=== PATIENT | female | born 1970 | race Caucasian/White ===

== ENCOUNTER 2017-01-18 17:48 | Observation (INO) | payer OTHER ==
[2017-01-18] MEDS ORDERED: NITROGLYCERIN 0.4 MG/TAB BTL SL PRN (18:18)
[2017-01-18] MEDS ORDERED: ASPIRIN 81 MG TAB.CHEW PO ONE (18:18)
[2017-01-18] MEDS ORDERED: ASPIRIN 81 MG TAB.CHEW ONE (18:19)
--- NOTE | 2017-01-18 18:27 | ERNOTE ---
Chest Pain/Cardiac HPI Chief Complaint: Chest Pain Time Seen by Provider: 01/18/17 18:12 Source: patient Exam Limitations: no limitations Immunizations: IMMUNIZATION HX Immunizations Up to Date Yes History of Influenza Vaccine Yes Hx Pneumococcal Vaccination No Allergies/Adverse Reactions: Allergies Iodinated Contrast Media - Oral and [Iodinated Contrast Media - IV Dye] Allergy (Severe, Verified 06/06/14 13:29) DIFF BREATHING Home Medications: HOME MEDICATIONS Acetaminophen [Tylenol] 1 - 2 tab PO Q4H PRN 12/15/13 [Last Taken 06/05/14] Aspirin [Aspirin Chewable] 81 mg PO DAILY 12/15/13 [Last Taken 06/05/14] Atorvastatin Calcium [Lipitor] 40 mg PO HS 12/15/13 [Last Taken 06/05/14] Clopidogrel Bisulfate [Plavix] 75 mg PO DAILY 12/15/13 [Last Taken 06/05/14] Nitroglycerin [Nitrostat] 0.4 mg SL Q5M PRN 12/15/13 [Last Taken 06/05/14] buPROPion HCL [Wellbutrin Xl] 150 mg PO DAILY 12/15/13 [Last Taken 06/05/14] Isosorbide Mononitrate [Imdur] 30 mg PO DAILY #30 tab.sr.24h 06/08/14 [Last Taken Unknown] Nicotine [Nicoderm] 14 mg TD Q24H 14 Days 06/08/14 [Last Taken Unknown] Narrative: Patient was sitting in a chair when she started to have left sided chest pain radiating to her left jaw, associated nausea and dizziness. This feels similar to symptoms she has had prior to needing a stent. Nitro might have helped briefly Date (Duration): 01/18/17 Time (Timing): 17:00 Timing: constant - waxing and waning Severity/Quality: moderate Location: left chest Chest Pain Radiation: jaw Activities at Onset: none, rest Modifying Factors - Improves: Present: nothing Modifying Factors - Worsens: Present: exercise Nitro Today/Relief: 0.4 mg x 1 Aspirin Treatment Today: 81 mg x 1 Associated Symptoms: Present: dizziness, nausea. Absent: shortness of breath, diaphoresis, fever/chills Prior Chest Pain/Cardiac Workup: Reports: prior chest pain, heart attack, cardiac cath Prior Treatment: Denies: recently seen Review of Systems - Review of Systems Constitutional: Absent: recent illness, fever Respiratory: Absent: shortness of breath Cardiology: Present: See HPI Gastrointestinal/Abdominal: Present: nausea, diarrhea - intermittent, irritable bowel syndrome. Absent: vomiting Genitourinary: Present: no symptoms reported Musculoskeletal: Absent: back pain Neurological: Absent: headache, weakness, numbness - Patient's Past Medical History Patient History - Medical: No pertinent hx Patient History - Cardiac/Respiratory: Coronary Heart Disease, Hyperlipidemia, Myocardial Infarction Patient History - Cancer: No Hx of Cancer Patient History - Surgical Procedures: Appendectomy, Cholecystectomy, Cardiac stent, Tubal Ligation Patient History - Other: None - Family History Father Family History - Medical: Other Grandfather-Maternal Family History - Medical: Diabetes Type 2 Insulin Dependent Grandmother-Paternal Family History - Medical: Other Mother Family History - Medical: Multiple Sclerosis - Social History Living Situations: home Abuse History: No History of abuse Psych History: No pertinent hx Smoking Status: Never smoker Have you smoked in the past 12 months: No Do you dip or chew tobacco: No Alcohol Use: none Drug Use: marijuana - Immunizations Immunizations Up to Date: Yes Hx Pneumococcal Vaccination: No History of Influenza Vaccine: Yes Physical Exam - Physical Exam General Appearance: Present: wd/wn, alert, mild distress, obese Respiratory: Present: no respiratory distress, normal breath sounds, no accessory muscle use, chest nontender, lungs clear Cardiovascular/Chest: Present: regular rate, rhythm, no murmur Gastrointestinal/Abdominal: Present: normal bowel sounds, nontender, nondistended, soft Extremity Exam: Present: no edema Neurological Exam: Present: alert, oriented, normal mood/affect Skin Exam: Present: normal color, warm/dry ED Progress - Results and Orders Patient's Lab Results:: I have reviewed the patient's lab results. - Vital Signs Patient's Vital Signs:: I have reviewed the patient's vital signs. Vital Signs: Vital Signs 01/18/17 17:53 Temperature 36.7 C Pulse Rate 66 Respiratory 16 Rate Blood Pressure 129/78 O2 Sat by Pulse 98 Oximetry - EKG EKG: NSR, other - low voltage, no acute changes EKG read: Interp. by me - Progress/Reassessment Chief Complaint: Chest Pain Progress Note-Subjective: 01/18/17 18:36 minimal pain relieve after first nitro here 01/18/17 18:52 pain slightly better after second nitro, not resolved 01/18/17 19:05 pain further improved, not resolved, discussed results and limits of test to rule out worsening CAD, discussed option with patient and , as she has symptoms similar to prior MT might need to be seen by cupola man soon, transfer to [facility] might not be paid by insurance as [facility] is closer, offered admission her for serial troponin and EKG, patient agreed 01/18/17 19:11 message to Alida Luque 01/18/17 19:20 discussed with Alida, okay to admit for chest pain observation Departure - Departure Clinical Impression: Chest pain, rule out acute myocardial infarction Disposition: [facility] Condition: Good
[2017-01-18] MEDS ORDERED: NITROGLYCERIN 0.4 MG/TAB BTL SL ONE (18:36)
[2017-01-18 18:41] LABS: Hematocrit 37.3 % (37.0-47.0); Hemoglobin 12.6 gm/dL (12.5-16.0); Mean Corpuscular Hemoglobin 30.7 pg (27-31); Mean Corpuscular Hgb Conc 33.8 g/dl (32-36); Mean Platelet Volume 10.3 fl (6.0-9.5); Neutrophil # 9.2 K/mm3 (1.3-6.0); Neutrophil % 68.2 % (42-75.0); Platelet Count 193 K/mm3 (150-450); Red Cell Distribution Width 14.7 % (11.5-14.0); White Blood Count 13.5 K/mm3 (4.0-10.5)
[2017-01-18 18:56] LABS: Albumin * 2.7 gm/dl (3.4-5.0); Anion Gap 12.2 mmol/L (6.8-13.8); BUN/Creatinine Ratio 10.6 (9.0-21.6); Blood Urea Nitrogen 7 mg/dL (3-23); Calcium * 9.3 mg/dL (7.9-10.9); Carbon Dioxide 26.2 mmol/L (24-32.6); Chloride 103 mmol/L (97-106); Glucose * 113 mg/dL (70-110); Potassium 3.4 mmol/L (3.4-4.6); Sodium 138 mmol/L (132-142); Total Protein 6.9 gm/dL (6.2-8.2)
[2017-01-18 18:57] LABS: ALT 15 U/L (19-67); AST 16 U/L (0-48); Alkaline Phosphatase * 83 U/L (50-170); Bilirubin, Total 0.3 mg/dL (0.0-1.1); Troponin I Less than 0.017 ng/ml (0.00-0.10)
[2017-01-18] MEDS ORDERED: MORPHINE SULFATE 2 MG/ML DISP.SYRIN IV ONE (19:11)
[2017-01-18] MEDS ORDERED: MORPHINE SULFATE 2 MG/ML DISP.SYRIN ONE (19:22)
[2017-01-18] MEDS: MORPHINE SULFATE 2 MG/ML DISP.SYRIN IV PRN ×2 (21:22→22:47)
--- NOTE | 2017-01-18 21:24 | HP ---
Chief Complaint - Chief Complaint Date of Service: 01/18/17 Time of Service: 20:51 Chief Complaint: chest pain History of Present Illness: Augusta is a 46 year old female with a history of CAD (Stent LAD 08/2013, angioplasty 2nd OM 06/2014 - cards Dr díaz at [facility]), hx NSTEMI 08/2013, and fibromyalgia that presented to the ER with c/o chest pain with radiation to left arm. back and jaw since 5 pm tonight. Symptoms similar to prior episodes. describes cp as sharp / knife-like but also describes it as a pressure, worse with palpation of left anterior chest. cp down to 210 with sl ntg and 2 mg iv morphine in ER. History of chronic pain due to fibromyalgia, currently on fentanyl patch. EKG showed SR with no acute st-t wave changes. initial troponin negative. patient to be admitted for cp on uncertain origin. - Patient's Past Medical History Patient History - Medical: Fibromyalgia, Migraines Patient History - Cardiac/Respiratory: Coronary Heart Disease, Hyperlipidemia, Myocardial Infarction Patient History - Cancer: No Hx of Cancer Patient History - Surgical Procedures: Appendectomy, Cholecystectomy, Cardiac stent - and angioplasty, Tubal Ligation Patient History - Other: None LMP (females 10-50): Menopausal - Family History Father Family History - Medical: Other Family History - Cardiac/Respiratory: Coronary Heart Disease Family History - Cancer: No pertinent family hx Grandfather-Maternal Family History - Medical: Diabetes Type 2 Insulin Dependent Family History - Cardiac/Respiratory: No pertinent hx Family History - Cancer: No pertinent family hx Grandmother-Maternal Family History - Medical: Family History - Cardiac/Respiratory: No pertinent hx Family History - Cancer: Lung Grandmother-Paternal Family History - Medical: Other Family History - Cardiac/Respiratory: No pertinent hx Family History - Cancer: No pertinent family hx Mother Family History - Medical: Multiple Sclerosis Family History - Cardiac/Respiratory: Coronary Heart Disease, COPD Family History - Cancer: No pertinent family hx - Social History Living Situations: home Abuse History: No History of abuse Psych History: No pertinent hx Smoking Status: Former smoker Have you smoked in the past 12 months: No Do you dip or chew tobacco: No Patient requests Smoking Cessation Consult: No Initiate information on Smoking Cessation: No Alcohol Use: none Drug Use: marijuana - Immunizations Immunizations Up to Date: Yes Hx Pneumococcal Vaccination: No History of Influenza Vaccine: Yes Review Of Systems (GEN) - Review of Systems Generalized/Overall Review: Present: No Symptoms Reported EENTM: Present: No Symptoms Reported Respiratory: Present: Shortness of Breath. Absent: Cough, Orthopnea, Wheezing Cardiac: Present: Chest Pain, Edema - chronic. Absent: Palpitations, Syncope Abdominal: Present: No Symptoms Reported Genitourinary: Present: No Symptoms Reported Musculoskeletal: Present: No Symptoms Reported Neurological: Present: No Symptoms Reported Skin: Present: No Symptoms Reported Endocrine: Present: No Symptoms Reported Misc: All systems neg except as marked Immunizations: IMMUNIZATION HX Immunizations Up to Date Yes History of Influenza Vaccine Yes Hx Pneumococcal Vaccination No Allergies/Adverse Reactions: Allergies Allergy/AdvReac Type Severity Reaction Status Date / Time Iodinated Contrast Media - Allergy Severe DIFF Verified 06/06/14 13:29 Oral and BREATHING [Iodinated Contrast Media - IV Dye] Home Medications: HOME MEDICATIONS Acetaminophen [Tylenol] 1 - 2 tab PO Q4H PRN 12/15/13 [Last Taken 06/05/14] Aspirin [Aspirin Chewable] 81 mg PO DAILY 12/15/13 [Last Taken 06/05/14] Atorvastatin Calcium [Lipitor] 40 mg PO HS 12/15/13 [Last Taken 06/05/14] Nitroglycerin [Nitrostat] 0.4 mg SL Q5M PRN 12/15/13 [Last Taken 06/05/14] Isosorbide Mononitrate [Imdur] 30 mg PO DAILY #30 tab.sr.24h 06/08/14 [Last Taken Unknown] Baclofen 20 mg PO TID 01/18/17 [Last Taken Unknown] Buspirone HCl 7.5 mg PO TID 01/18/17 [Last Taken Unknown] Diclofenac Sodium 75 mg PO BID 01/18/17 [Last Taken Unknown] Diltiazem HCl [Diltiazem 24Hr Cd] 240 mg PO DAILY 01/18/17 [Last Taken Unknown] Etanercept [Enbrel] 50 mg SQ . 01/18/17 [Last Taken Unknown] Folic Acid 1 mg PO DAILY 01/18/17 [Last Taken Unknown] Hydroxychloroquine Sulfate [Plaquenil] 200 mg PO DAILY 01/18/17 [Last Taken Unknown] Leflunomide 20 mg PO DAILY 01/18/17 [Last Taken Unknown] Metoprolol Succinate [Toprol Xl] 25 mg PO BID 01/18/17 [Last Taken Unknown] Orphenadrine Citrate 100 mg PO BID 01/18/17 [Last Taken Unknown] Ranitidine HCl [Zantac] 150 mg PO BID 01/18/17 [Last Taken Unknown] Ranolazine [Ranexa] 500 mg PO BID 01/18/17 [Last Taken Unknown] Venlafaxine HCl 75 mg PO DAILY 01/18/17 [Last Taken Unknown] fentaNYL [Fentanyl] 50 mcg TD . 01/18/17 [Last Taken 01/17/17] Exam - Exam Vital Signs: Vital Signs - Last Taken Temp 36.4 C L 01/18/17 19:28 Pulse 68 01/18/17 19:31 Resp 14 01/18/17 19:31 BP 144/77 01/18/17 19:31 Pulse Ox 98 01/18/17 19:31 Constitutional: Present: Alert, Oriented x3, Cooperative, No distress, Obese ENT Exam: Present: hearing grossly normal Eye Exam: bilateral eye: normal inspection Neck: Present: supple Back Exam: Present: normal inspection, no vertebral tenderness Breasts: Present: Exam deferred Respiratory: Present: chest non-tender, lungs clear, normal breath sounds, no respiratory distress, no accessory muscle use Cardiovascular/Chest: Present: normal peripheral pulses, regular rate, rhythm, no chest tenderness, no JVD, systolic murmur - 2/6 Peripheral Pulses: dorsalis-pedis (R): 2+, dorsalis-pedis (L): 2+, radial (R): 2 +, radial (L): 2+ Abdomen: Present: soft, nontender, nondistended, obese /Rectal: Present: Exam deferred Extremity: Present: non-tender, normal inspection, no calf tenderness Skin Exam: Present: normal color, warm/dry, no cyanosis Diagnostic Studies: Laboratory Results WBC 13.5 K/mm3 (4.0-10.5) H 01/18/17 18:34 RBC 4.10 M/mm3 (4.2-5.4) L 01/18/17 18:34 Hgb 12.6 gm/dL (12.5-16.0) 01/18/17 18:34 Hct 37.3 % (37.0-47.0) 01/18/17 18:34 MCV 91.0 fl (78-100) 01/18/17 18:34 MCH 30.7 pg (27-31) 01/18/17 18:34 MCHC 33.8 g/dl (32-36) 01/18/17 18:34 RDW 14.7 % (11.5-14.0) H 01/18/17 18:34 Plt Count 193 K/mm3 (150-450) 01/18/17 18:34 MPV 10.3 fl (6.0-9.5) H 01/18/17 18:34 Immature Gran % (Auto) 0.20 % (0.001-0.429) 01/18/17 18:34 Immature Gran # (Auto) 0.03 K/mm3 (0.000-0.0310) 01/18/17 18:34 Neutrophils % 68.2 % (42-75.0) 01/18/17 18:34 Lymphocytes % 23.0 % (20-51) 01/18/17 18:34 Monocytes % 7.5 % (0.0-9) 01/18/17 18:34 Eosinophils % 0.4 % (0.0-3.0) 01/18/17 18:34 Basophils % 0.7 % (0.0-1.0) 01/18/17 18:34 Nucleated RBC % 0.0 k/mm3 (0-1) 01/18/17 18:34 Neutrophils # 9.2 K/mm3 (1.3-6.0) H 01/18/17 18:34 Lymphocytes # 3.1 k/mm3 (1.5-3.5) 01/18/17 18:34 Monocytes # 1.0 k/mm3 (0.0-1.0) 01/18/17 18:34 Eosinophils # 0.1 k/mm3 (0.0-0.7) 01/18/17 18:34 Absolute Basophils 0.1 k/mm3 (0.0-0.1) 01/18/17 18:34 Sodium 138 mmol/L (132-142) 01/18/17 18:34 Plasma Sodium 138 mmol/L (130-142) 01/18/17 18:34 Potassium 3.4 mmol/L (3.4-4.6) 01/18/17 18:34 Chloride 103 mmol/L (97-106) 01/18/17 18:34 Carbon Dioxide 26.2 mmol/L (24-32.6) 01/18/17 18:34 Anion Gap 12.2 mmol/L (6.8-13.8) 01/18/17 18:34 BUN 7 mg/dL (3-23) 01/18/17 18:34 Creatinine 0.66 mg/dL (0.4-1.4) 01/18/17 18:34 Est GFR (Non-Af Amer) 102 mL/min (60-130) D 01/18/17 18:34 BUN/Creatinine Ratio 10.6 (9.0-21.6) 01/18/17 18:34 Random Glucose 113 mg/dL (70-110) H 01/18/17 18:34 Calcium 9.3 mg/dL (7.9-10.9) 01/18/17 18:34 Calcium Adj for Albumin 10.0 mg/dL (8.4-10.2) 01/18/17 18:34 Total Bilirubin 0.3 mg/dL (0.0-1.1) 01/18/17 18:34 AST 16 U/L (0-48) 01/18/17 18:34 ALT 15 U/L (19-67) L 01/18/17 18:34 Alkaline Phosphatase 83 U/L (50-170) 01/18/17 18:34 Troponin I Less than 0.017 ng/ml (0.00-0.10) 01/18/17 18:34 Total Protein 6.9 gm/dL (6.2-8.2) 01/18/17 18:34 Albumin 2.7 gm/dl (3.4-5.0) L 01/18/17 18:34 Assessment/Plan - Narrative Narrative: Chest pain of uncertain etiology - history CAD / NSTEMI 2013 - initial troponin neg - initial EKG non-acute - monitor on tele - repeat troponin / ekg at midnight - if critical emergent transfer for cardiac eval - morphine prn for chest pain - continue asa/plavix New heart murmur - ? etiology - ? due to myocardial ischemia vs other - initial troponin / ekg neg - recheck ekg / troponin at midnight Fibromyalgia - currently on fenantyl patch - will make determining true chest pain from chronic pain more challenging. Code status: Full code VTE: lovenox GI proph: protonix po. - Assessment/Plan (1) Chest pain of uncertain etiology Problem: Acute (2) History of non-ST elevation myocardial infarction (NSTEMI) Problem: Acute (3) Newly recognized heart murmur Problem: Acute (4) Hx of coronary artery disease Problem: Chronic (5) Fibromyalgia Problem: Acute
[2017-01-18] MEDS ORDERED: ENOXAPARIN SODIUM 40 MG/0.4 ML SYRG SC SCH (21:30)
[2017-01-18] MEDS: FAMOTIDINE 20 MG TABLET PO SCH (23:53)
[2017-01-19] MEDS: METOPROLOL SUCCINATE 25 MG TABLET.SA PO SCH ×2 (00:14→08:25)
[2017-01-19] MEDS: MORPHINE SULFATE 2 MG/ML DISP.SYRIN IV PRN (03:08)
[2017-01-19] MEDS: FAMOTIDINE 20 MG TABLET PO SCH (08:26)
[2017-01-19] MEDS ORDERED: ASPIRIN 81 MG TAB.CHEW PO SCH (09:00)
[2017-01-19] MEDS ORDERED: busPIRone HCL 5 MG TABLET PO SCH (09:00)
[2017-01-19] MEDS ORDERED: FOLIC ACID 1 MG TABLET PO SCH (09:00)
[2017-01-19] MEDS ORDERED: VENLAFAXINE HCL 75 MG TABLET PO SCH (09:00)
[2017-01-19] MEDS ORDERED: HYDROXYCHLOROQUINE SULFATE 200 MG TABLET PO SCH (09:00)
[2017-01-19] MEDS ORDERED: BACLOFEN 10 MG TABLET PO SCH (09:00)
[2017-01-19] MEDS ORDERED: ISOSORBIDE MONONITRATE 30 MG TAB.SR.24H PO SCH (09:00)
[2017-01-19] MEDS ORDERED: DILTIAZEM HCL 240 MG CAP.SR.24H PO SCH (09:00)
[2017-01-19] MEDS ORDERED: LEFLUNOMIDE 20 MG TABLET PO SCH (09:00)
--- NOTE | 2017-01-19 10:42 | DS ---
(1) Chest pain Problem: Acute (2) CAD (coronary artery disease) Problem: Chronic (3) History of non-ST elevation myocardial infarction (NSTEMI) Problem: Chronic Description of Stay: ADMISSION DATE: 01/18/2017 DISCHARGE DATE: 01/19/2017 ADMISSION HPI by SUSY Scruggs: Augusta is a 46 year old female with a history of CAD (Stent LAD 08/2013, angioplasty 2nd OM 06/2014 - cards Dr díaz at [facility]), hx NSTEMI 08/2013, and fibromyalgia that presented to the ER with c/o chest pain with radiation to left arm. back and jaw since 5 pm tonight. Symptoms similar to prior episodes. describes cp as sharp / knife-like but also describes it as a pressure, worse with palpation of left anterior chest. cp down to 2/10 with sl ntg and 2 mg iv morphine in ER. History of chronic pain due to fibromyalgia, currently on fentanyl patch. EKG showed SR with no acute st-t wave changes. initial troponin negative. patient to be admitted for cp on uncertain origin. HOSPITAL COURSE: The patient states that around 5 PM on 01/18/2017, she started to experience chest heaviness/pressure with associated shortness of breath. The patient states that the chest pain radiated into her left jaw and left arm, especially the left elbow. The patient was not being active and was just sitting around when the chest pressure started. The chest pressure continued to be present until approximately 5 or 6 AM on 01/19/2017. The patient does have a history of stable angina but she states that this pain was different than her usual stable angina because it went into her left jaw and left elbow. She states that her symptoms reminded her of the same symptoms (just to a lesser degree) she had prior to her heart attack in 2013. The patient states that in 2013 when she was experiencing chest pain, she was admitted to at least 2 different hospitals and had her cardiac enzymes monitored and she states that her cardiac enzymes have never been elevated in the past and were not elevated in 2013 when she ended up having to have a coronary stent placed. The patient follows with smooth plater Dr. Rosales with [facility] in [place]. Given the patient's history as described above, I called [facility] in [place] and discussed the patient's case with the on-call smooth plater, Dr. Jamie Norman. He agreed with our workup thus far and stated that the patient had 2 different options of plan of care to decide between. #1: She could be discharged home and close follow-up with her smooth plater Dr. Rosales on Saturday (01/21/2017). #2: She could be transferred to [facility] in [place] to be monitored over the weekend and then Dr. Rosales could see her as an inpatient on Saturday morning. The patient opted to be discharged home. The patient was instructed that she would receive a call from Dr. Rosaless office on Saturday to schedule a follow-up visit. FOLLOW-UP APPOINTMENTS: -Golf Course Equipment Operator, Dr. Rosales NEW OR CHANGED MEDICATIONS: None DISCONTINUED MEDICATIONS: None RADIOLOGY REPORTS: Chest x-ray on 01/18/2017 showed: The cardiac silhouette is within normal limits of size. The mediastinum and hilum are within normal limits. The lung wright are clear and unchanged. I do not see evidence for an infiltrate, effusion or pulmonary edema. IMPRESSION: No acute cardiopulmonary process. Procedures Performed: none Results and Findings: Laboratory Tests 01/18/17 01/18/17 01/19/17 18:34 18:34 00:34 WBC 13.5 H RBC 4.10 L Hgb 12.6 Plt Count 193 Plasma Sodium 138 Potassium 3.4 Chloride 103 Carbon Dioxide 26.2 Anion Gap 12.2 BUN 7 Creatinine 0.66 Est GFR (Non-Af Amer) 102 D BUN/Creatinine Ratio 10.6 Random Glucose 113 H Calcium 9.3 Calcium Adj for Albumin 10.0 Total Bilirubin 0.3 AST 16 ALT 15 L Alkaline Phosphatase 83 Troponin I Less than 0.017 Less than 0.017 Total Protein 6.9 Albumin 2.7 L 01/19/17 05:40 WBC RBC Hgb Plt Count Plasma Sodium Potassium Chloride Carbon Dioxide Anion Gap BUN Creatinine Est GFR (Non-Af Amer) BUN/Creatinine Ratio Random Glucose Calcium Calcium Adj for Albumin Total Bilirubin AST ALT Alkaline Phosphatase Troponin I Less than 0.017 Total Protein Albumin Discharge Disposition: Home self care Disposition: Home self-care Condition: Stable Discharge Activity: Activity as tolerated Discharge Diet: Resume usual diet - Heart healthy diet Problem Oriented Discharge Instructions to Patient/Family: Chest Wall Pain, [id number] Additional Patient Instructions (free text): Patient will be contacted by Dr. Rosales's office Saturday (01/21/2017) morning to schedule a follow-up with Dr. Rosales. Complete Home Medications List: Complete Home Medication List: RX: Acetaminophen [Tylenol] 1 - 2 tab PO Q4H PRN 12/15/13 RX: Aspirin [Aspirin Chewable] 81 mg PO DAILY 12/15/13 RX: Atorvastatin Calcium [Lipitor] 40 mg PO HS 12/15/13 RX: Nitroglycerin [Nitrostat] 0.4 mg SL Q5M PRN 12/15/13 RX: Isosorbide Mononitrate [Imdur] 30 mg PO DAILY #30 tab.sr.24h 06/08/14 Orphenadrine Citrate 100 mg PO BID 01/18/17 RX: Baclofen 20 mg PO TID 01/18/17 RX: Buspirone HCl 7.5 mg PO TID 01/18/17 RX: Diclofenac Sodium 75 mg PO BID 01/18/17 RX: Diltiazem HCl [Diltiazem 24Hr Cd] 240 mg PO DAILY 01/18/17 RX: Etanercept [Enbrel] 50 mg SQ . 01/18/17 RX: Folic Acid 1 mg PO DAILY 01/18/17 RX: Hydroxychloroquine Sulfate [Plaquenil] 200 mg PO DAILY 01/18/17 RX: Leflunomide 20 mg PO DAILY 01/18/17 RX: Metoprolol Succinate [Toprol Xl] 25 mg PO BID 01/18/17 RX: Ranitidine HCl [Zantac] 150 mg PO BID 01/18/17 RX: Ranolazine [Ranexa] 500 mg PO BID 01/18/17 RX: Venlafaxine HCl 75 mg PO DAILY 01/18/17 RX: fentaNYL [Fentanyl] 50 mcg TD . 01/18/17
[2017-01-19 10:43] VITALS: BP 133/75
[2017-01-19] MEDS ORDERED: ROSUVASTATIN CALCIUM 20 MG TABLET PO SCH (21:00)
[2017-01-19] MEDS ORDERED: ATORVASTATIN CALCIUM 40 MG TABLET PO SCH (21:00)
[2017-01-20] MEDS ORDERED: fentaNYL 50 MCG PATCH.TD72 TD SCH (09:00)
== END 2017-01-19 11:20 | disposition home or self-care (01) ==
LOC: ER 17:48 → MS 19:23
PROVIDERS: ADMIT Nurse Practitioner Critical Care Medicine; ATTEND Internal Medicine
DX: R07.9 Chest pain, unspecified (principal); R68.84 Jaw pain; I25.10 Atherosclerotic heart disease of native coronary artery without angina pectoris; Z87.891 Personal history of nicotine dependence; M79.7 Fibromyalgia; I25.2 Old myocardial infarction; E78.5 Hyperlipidemia, unspecified; R01.1 Cardiac murmur, unspecified
CPT/HCPCS: 36415; 71010; 80053; 84484; 85025; 93005; 96372; 96374; 96376; 99284; G0378